=== PATIENT | male | born 1980 ===

== ENCOUNTER 2017-01-20 10:55 | Emergency (ER) | payer OTHER ==
[2017-01-20 11:03] VITALS: BMI 29.1
[2017-01-20 11:04] VITALS: BP 137/88; PULSE 81; RESP 20; TEMP 98.5; O2SAT 96
--- NOTE | 2017-01-20 11:43 | ED PDOC ---
HPI: Wound Care - HPI Time Seen by Provider: 01/20/17 11:36 Chief Complaint (Nursing): Abnormal Skin Integrity Chief Complaint (Provider): abscess History Per: Patient Additional Complaint(s): 36-year-old male with history of HIV presents to emergency department with abscess to left buttocks that he first noticed 1 week ago. Patient states area is very hard and painful over the past couple of days. He states that if he squeezes the area very hard he does have some drainage. He denies any fever or chills. He has not taken any medication for pain relief up to this point. Patient states he is compliant with HIV meds. Past Medical History Reviewed: Historical Data, Nursing Documentation, Vital Signs Vital Signs: Last Vital Signs Temp 98.5 F 01/20/17 11:03 Pulse 81 01/20/17 11:03 Resp 20 01/20/17 11:03 BP 137/88 01/20/17 11:03 Pulse Ox 96 01/20/17 11:03 - Medical History PMH: HIV - Surgical History Surgical History: No Surg Hx - Family History Family History: States: No Known Family Hx - Living Arrangements Living Arrangements: With Family - Social History Current smoker - smoking cessation education provided: No Alcohol: Social Drugs: Denies - Home Medications Home Medications: Ambulatory Orders Medication Instructions Recorded Cephalexin [Keflex] 500 mg PO TID #21 capsule 01/20/17 Sulfamethoxazole/Trimethoprim 1 tab PO BID #14 tab 01/20/17 [Bactrim DS 800 mg-160 mg] - Allergies Allergies/Adverse Reactions: Allergies Allergy/AdvReac Type Severity Reaction Status Date / Time morphine Allergy ITCHING Verified 01/20/17 11:00 Review of Systems ROS Statement: Except As Marked, All Systems Reviewed And Found Negative Constitutional: Negative for: Fever, Chills Skin: Positive for: Other (abscess to left buttocks) Physical Exam - Reviewed Nursing Documentation Reviewed: Yes Vital Signs Reviewed: Yes - Physical Exam Appears: Positive for: Well, Non-toxic, No Acute Distress Skin: Negative for: Rash Eye Exam: Positive for: Normal appearance Cardiovascular/Chest: Positive for: Regular Rate, Rhythm Respiratory: Positive for: Normal Breath Sounds Back: Positive for: Other (2 cm indurated abscess noted to left buttocks with localized erythema, no erythematous streaking, moderate induration with no fluctuance or central pointing, no active drainage or bleeding, mildly tender to palpation.) Extremity: Positive for: Normal ROM Neurologic/Psych: Positive for: Alert, Oriented - ECG O2 Sat by Pulse Oximetry: 96 Pulse Ox Interpretation: Normal Medical Decision Making Medical Decision Making: Impression: early abscess No I&D indicated at this time as wound is too indurated with no fluctuance or central pointing. Patient given prescriptions for Keflex and Bactrim. He was advised to apply warm compresses with Some salts to affected area and was referred to surgeon for follow-up. Patient is aware he can return to ED if acutely worse at any time. Disposition - Clinical Impression Clinical Impression: Abscess - Patient ED Disposition Is Patient to be Admitted: No Counseled Patient/Family Regarding: Diagnosis, Need For Followup, Rx Given - Disposition Referrals: Dax Whalen MD [Staff Provider] - Disposition: Routine/Home Disposition Time: 11:37 Condition: STABLE Additional Instructions: Take rx meds as directed Over the counter advil for pain, take 3 over the counter tabs every 6 hrs for pain Apply warm compresses with epsom salts to affected area. Follow up in 2 days with primary care doctor or surgeon in 2 days for wound re- evaluation. Prescriptions: Cephalexin [Keflex] 500 mg PO TID #21 capsule Sulfamethoxazole/Trimethoprim [Bactrim DS 800 mg-160 mg] 1 tab PO BID #14 tab Instructions: Abscess (ED)
== END 2017-01-20 11:50 | disposition home or self-care (01) ==
LOC: H.ER 10:55
DX: L02.31 Cutaneous abscess of buttock (principal)